=== PATIENT | male | born 1975 | race Caucasian/White ===

== ENCOUNTER 2016-08-06 15:04 | Emergency (ER) | payer OTHER ==
[2016-08-06] MEDS ORDERED: ONDANSETRON 4 MG VIAL ONE (16:42)
[2016-08-06] MEDS ORDERED: SODIUM CHLORIDE 0.9% 1,000 ML ONE (16:43)
[2016-08-06] MEDS ORDERED: Meclizine HCl 25 MG TAB ONE (16:43)
== END 2016-08-06 20:10 | disposition home or self-care (01) ==
LOC: ER 15:04
DX: R42 Dizziness and giddiness (principal); R11.0 Nausea; R53.1 Weakness; B34.9 Viral infection, unspecified; I25.10 Atherosclerotic heart disease of native coronary artery without angina pectoris; F17.200 Nicotine dependence, unspecified, uncomplicated
CPT/HCPCS: 36415; 71020; 80053; 81003; 82553; 83605; 84484; 85025; 87040; 87088; 87804; 87880; 93005; 96361; 96374; 99284; G0479; J2405; 80307